=== PATIENT | female | born 1975 ===

== ENCOUNTER 2017-12-29 22:45 | Emergency (ER) | payer MEDICAID ==
[2017-12-30 04:08] VITALS: O2SAT 100
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
[2017-12-30 06:05] VITALS: BP 141/84; PULSE 78; RESP 18; TEMP 98.8
== END 2017-12-30 06:43 | disposition home or self-care (01) ==
LOC: EDBD 22:45 → H.ER 22:45
DX: F10.129 Alcohol abuse with intoxication, unspecified (principal)

== ENCOUNTER 2018-01-04 15:01 | Emergency (ER) | payer MEDICAID ==
[2018-01-04 15:05] VITALS: TEMP 98
[2018-01-04] MEDS ORDERED: Sodium Chloride 0.9% 1,000 ML IV STA (15:20)
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
[2018-01-04 16:11] LABS: BASO # 0.1 K/uL (0.0-0.2); BASO % 1.6 % (0.0-2.0); EOS # 0.1 K/uL (0.0-0.7); EOS % 1.4 % (0.0-4.0); HEMOGLOBIN 10.6 g/dL (12.0-16.0); LYMPH # 2.2 K/uL (1.0-4.3); LYMPH % 36.2 % (20.0-40.0); MEAN CORPUSCULAR HEMOGLOBIN 27.4 pg (27.0-31.0); MEAN PLATELET VOLUME 7.4 fl (7.2-11.7); MONO # 0.3 K/uL (0.0-0.8); MONO % 5.3 % (0.0-10.0); NEUT # 3.4 K/uL (1.8-7.0); NEUT % 55.5 % (50.0-75.0); NRBC % 0.1 % (0.0-0.0); RBC 3.88 Mil/uL (3.80-5.20); RED CELL DISTRIBUTION WIDTH 22.6 % (11.5-14.5); WHITE BLOOD COUNT 6.1 K/uL (4.8-10.8)
[2018-01-04 16:16] LABS: PROTHROMBIN TIME 11.5 Seconds (9.8-13.1)
[2018-01-04 16:19] LABS: PARTIAL THROMBOPLASTIN TIME 31.3 Seconds (25.6-37.1)
[2018-01-04 16:24] LABS: BARBITURATES, UR NEGATIVE (NEGATIVE); BENZODIAZEPINES, UR NEGATIVE (NEGATIVE); OPIATES, UR NEGATIVE (NEGATIVE); PHENCYCLIDINE, UR NEGATIVE (NEGATIVE)
[2018-01-04 16:25] LABS: ALB/GLOB RATIO 1.1 (1.0-2.1); ALBUMIN 4.5 g/dL (3.5-5.0); ALT/SGPT 50 U/L (9-52); AST/SGOT 126 U/L (14-36); BLOOD UREA NITROGEN 10 mg/dl (7-17); CALCIUM 8.6 mg/dL (8.4-10.2); GFR AFRICAN-AMERICAN > 60; GFR NON-AFRICAN AMERICAN > 60
[2018-01-04 19:04] VITALS: RESP 18
[2018-01-04 21:43] VITALS: O2SAT 100
[2018-01-04 22:51] VITALS: BP 150/90; PULSE 90
== END 2018-01-04 22:58 | disposition home or self-care (01) ==
LOC: H.ER 15:01
DX: F10.129 Alcohol abuse with intoxication, unspecified (principal); Y90.8 Blood alcohol level of 240 mg/100 ml or more
CPT/HCPCS: 80053; 80320; 80324; 80345; 80346; 80349; 80353; 80358; 80361; 81025; 82140; 82948; 83735; 83992; 84100; 85025; 85610; 85730; 96374; 99283; J2060; J7030